=== PATIENT | female | born 1950 | race Caucasian/White ===

== ENCOUNTER 2022-03-12 11:21 | Emergency (ER) | payer MEDICARE, BC ==
[~2022-03-12] VITALS: Ht 144.8 cm; Wt 50.4 kg
[2022-03-12] VITALS (22 sets, daily range): BP systolic 132–199; BP diastolic 54–88
[2022-03-12] MEDS ORDERED: CLONAZEPAM1 MG PO (11:56)
[2022-03-12] MEDS ORDERED: ATENOLOL25 MG PO (11:57)
[2022-03-12] MEDS ORDERED: TRAZODONE50 MG PO (11:57)
[2022-03-12] MEDS ORDERED: ZOLPIDEM5 M1 PO (11:57)
[2022-03-12] MEDS ORDERED: OMEPRAZOLE DR40 MG PO (11:58)
[2022-03-12] MEDS ORDERED: LIPITOR20 M1 PO (11:59)
[2022-03-12] MEDS ORDERED: ONDANSETRON4 MG PO (11:59)
[2022-03-12] MEDS ORDERED: MECLIZINE25 MG PO (11:59)
[2022-03-12] MEDS ORDERED: MIRALAX17 GM PO (12:00)
[2022-03-12] MEDS ORDERED: PROLIA60 MG/ML SC (12:02)
[2022-03-12] MEDS ORDERED: CALCIUM280 MG PO (12:04)
[2022-03-12] MEDS ORDERED: VITAMIN D PO (12:05)
[2022-03-12] MEDS ORDERED: SENNA PLUS 50-81 CAP PO (12:06)
[2022-03-12] MEDS ORDERED: MULTIVITAMI9 PO (12:06)
[2022-03-12 12:21] LABS: HEMATOCRIT 39.3 % (37.0-47.0); HEMOGLOBIN 12.8 g/dl (12.0-16.0); IMMATURE GRANULOCYTES 0.1 % (0.0-5.0); MEAN CELL VOLUME 91.2 fL CALC (80.0-100.0); MEAN CORPUSCULAR HGB 29.7 pG CALC (26.0-32.0); MEAN CORPUSCULAR HGB CONC 32.6 g/dL CAL (32.0-36.0); NEUT# 4.59 thou/uL (2.00-7.15); RED BLOOD COUNT 4.31 mill/uL (4.20-5.60); RED CELL DISTRI WIDTH 14.3 % (11.5-15.5)
[2022-03-12 12:42] LABS: ALBUMIN 4.4 g/dL (3.2-5.0); BILIRUBIN, TOTAL 0.9 mg/dL (0.0-1.4); CREATININE 1.1 mg/dL (0.5-1.0); MAGNESIUM 1.9 mg/dL (1.6-2.3); POTASSIUM 3.9 mmol/l (3.5-5.1); TOTAL PROTEIN 7.6 g/dL (6.3-8.2)
[2022-03-12] MEDS ORDERED: ANTIVERT25 M1 PO (16:15)
[2022-03-12] MEDS ORDERED: CLONIDINE0.2 MG PO (16:15)
== END 2022-03-12 17:29 | disposition home or self-care (01) ==
LOC: ED 11:21
PROVIDERS: Internal Medicine
DX: I10 Essential (primary) hypertension (principal)
CPT/HCPCS: Q9967